=== PATIENT | male | born 1950 | race Caucasian/White ===

== ENCOUNTER → 2017-02-11 | Outpatient (CLI) | payer MEDICARE, BC | LOC: MW.CHFP 08:00 | PROVIDERS: ATTEND Student in an Organized Health Care Education/Training Program | DX: F41.9 Anxiety disorder, unspecified (principal); F32.9 Major depressive disorder, single episode, unspecified; Z23 Encounter for immunization | CPT/HCPCS: 90670; G0009; G0463 ==

== ENCOUNTER → 2017-03-25 | Outpatient (CLI) | payer MEDICARE, BC | LOC: MW.CHFP 12:29 | PROVIDERS: ATTEND Student in an Organized Health Care Education/Training Program | DX: Z12.5 Encounter for screening for malignant neoplasm of prostate (principal); F41.9 Anxiety disorder, unspecified; F32.9 Major depressive disorder, single episode, unspecified; N40.1 Benign prostatic hyperplasia with lower urinary tract symptoms; R33.8 Other retention of urine | CPT/HCPCS: 36415; G0103; G0463 ==